=== PATIENT | female | born 1995 | race Caucasian/White ===

== ENCOUNTER 2022-09-19 08:09 | Outpatient (CLI) | payer OTHER ==
[2022-09-19 12:27] LABS: BASOPHILS # (AUTO) 0.1 10^3/uL (0.0-0.1); EOSINOPHILS # (AUTO) 0.1 10^3/uL (0.0-0.7); EOSINOPHILS % (AUTO) 1.7 %; HCT - HEMATOCRIT 43.7 % (37.0-47.0); HGB - HEMOGLOBIN 14.2 g/dL (12.0-16.0); INR 1.1 (0.8-1.2); LYMPHOCYTES # (AUTO) 2.2 10^3/uL (1.5-3.5); MEAN CORPUSCULAR HEMOGLOBIN 29.8 pg (27.0-31.0); MEAN CORPUSCULAR HGB CONC 32.5 g/dL (32.0-36.0); MEAN CORPUSCULAR VOLUME 91.8 fL (81.0-99.0); MEAN PLATELET VOLUME 10.7 fL (7.9-10.8); MONOCYTES # (AUTO) 0.4 10^3/uL (0.0-1.0); MONOCYTES % (AUTO) 7.5 %; NEUTROPHILS # (AUTO) 3.1 10^3/uL (1.5-6.6); NEUTROPHILS % (AUTO) 52.6 %; PLT - PLATELET COUNT 263 10^3/uL (130-450); PT - PROTHROMBIN TIME 12.2 secs (9.9-12.6); RED BLOOD COUNT 4.76 10^6/uL (4.20-5.40); WHITE BLOOD COUNT 5.9 x10^3/uL (4.8-10.8)
[2022-09-19 12:30] LABS: ALBUMIN 4.4 g/dL (3.2-5.5); ALBUMIN/GLOBULIN RATIO 1.4 (1.0-2.2); BILIRUBIN,TOTAL 0.8 mg/dL (0.2-1.0); CALCIUM 9.6 mg/dL (8.5-10.3); CREATININE 0.7 mg/dL (0.4-1.0); POTASSIUM 3.9 mmol/L (3.5-5.0); TOTAL PROTEIN 7.5 g/dL (6.7-8.2)
[2022-09-19 12:41] LABS: PARTIAL THROMBOPLASTIN TIME 30.5 secs (24.9-33.3)
[2022-09-19 12:48] LABS: THYROID STIMULATING HORMONE 1.66 uIU/mL (0.34-5.60)
[2022-09-19 12:50] LABS: FREE T4 (FREE THYROXINE) 0.76 ng/dL (0.58-1.64)
== END 2022-09-19 08:10 | disposition home or self-care (01) ==
LOC: LAB.N 08:09
PROVIDERS: ATTEND Physician Assistant
DX: R63.4 Abnormal weight loss (principal)
CPT/HCPCS: 36415; 80053; 84439; 84443; 85025; 85610; 85730

== ENCOUNTER 2022-10-29 16:14 | Outpatient (CLI) | payer OTHER ==
[2022-10-29 20:28] LABS: BASOPHILS % (AUTO) 0.4 %; EOSINOPHILS # (AUTO) 0.1 10^3/uL (0.0-0.7); EOSINOPHILS % (AUTO) 1.1 %; HCT - HEMATOCRIT 37.9 % (37.0-47.0); LYMPHOCYTES # (AUTO) 2.5 10^3/uL (1.5-3.5); LYMPHOCYTES % (AUTO) 27.3 %; MEAN CORPUSCULAR HEMOGLOBIN 31.1 pg (27.0-31.0); MEAN CORPUSCULAR HGB CONC 34.3 g/dL (32.0-36.0); MEAN CORPUSCULAR VOLUME 90.7 fL (81.0-99.0); MEAN PLATELET VOLUME 10.8 fL (7.9-10.8); MONOCYTES # (AUTO) 0.6 10^3/uL (0.0-1.0); MONOCYTES % (AUTO) 6.5 %; NEUTROPHILS % (AUTO) 64.6 %; PLT - PLATELET COUNT 244 10^3/uL (130-450); RED BLOOD COUNT 4.18 10^6/uL (4.20-5.40); RED CELL DISTRIBUTION WIDTH 12.5 % (12.0-15.0); WHITE BLOOD COUNT 9.3 x10^3/uL (4.8-10.8)
[2022-10-29 20:34] LABS: BILIRUBIN,URINE NEGATIVE (NEGATIVE); GLUCOSE, URINE (UA) NEGATIVE (NEGATIVE); KETONES,URINE (UA) NEGATIVE (NEGATIVE); LEUKOCYTE ESTERASE, URINE NEGATIVE (NEGATIVE); NITRITE,URINE NEGATIVE (NEGATIVE); OCCULT BLOOD,URINE NEGATIVE (NEGATIVE); PH,URINE 7.5 PH (5.0-7.5); PROTEIN,URINE NEGATIVE (NEGATIVE); UROBILINOGEN,URINE 0.2 (NORMAL) E.U./dL (NORMAL)
[2022-10-29 20:52] LABS: CLARITY,URINE HAZY (CLEAR); RBC,URINE None Seen /HPF (0-5); WBC,URINE 0-3 /HPF (0-5)
[2022-10-29 20:53] LABS: AMORPHOUS SEDIMENT,UR Few /LPF; BACTERIA,URINE Rare /HPF (None Seen); SQUAMOUS EPITHELIAL CELL,UR FEW Squamous (<= Few)
[2022-10-31 06:11] LABS: HBsAG SCREEN Negative (Negative)
[2022-10-31 07:10] LABS: RPR Non Reactive (Non Reactive)
[2022-10-31 08:10] LABS: VARICELLA-ZOSTER AB IGG <135 index (Immune >165)
[2022-11-01 05:12] LABS: HCV AB Non Reactive (Non Reactive); HIV SCREEN 4TH GENERATION Non Reactive (Non Reactive)
== END 2022-10-29 16:15 | disposition home or self-care (01) ==
LOC: LAB.N 16:14
PROVIDERS: ATTEND Nurse Practitioner
DX: Z36.89 Encounter for other specified antenatal screening (principal)
CPT/HCPCS: 36415; 81001; 85025; 86592; 86762; 86787; 86803; 86850; 86900; 86901; 87086; 87340; 87389

== ENCOUNTER 2022-11-13 20:39 | Outpatient (CLI) | payer OTHER ==
--- NOTE | 2022-11-14 09:14 | Ultrasound Report ---
PROCEDURE: OB First Trimester w/TV INDICATIONS: POSITIVE TEST OUTSIDE/PRIOR DATING DATA: Last menstrual period (LMP): Unknown. First dating scan (date and location): 11/13/2022. Estimated date of delivery (HERMILA) from first dating scan: 06/15/2023. TECHNIQUE: Real-time scanning was performed of the fetus and maternal pelvic organs, with image documentation. Endovaginal scanning was also performed to better visualize the fetus and maternal ovaries. COMPARISON: None FINDINGS: Single living intrauterine . Embryo: [place]-rump rump length of 2.8 cm corresponding to gestational age of 9 weeks 3 days. Heart rate: 176 bpm Small perigestational hemorrhage measuring 1.8 cm, less than 50% circumference of the gestational sac . Measurement variability in dating: +/- 4 weeks by LMP, +/- 7 days by mean sac diameter (use before 6 weeks gestation if crown-rump length not able to be measured), +/- 5 days by crown-rump length (6-12 weeks gestation). Maternal organs: Ovaries are unremarkable. Left corpus luteum. IMPRESSION: Single living intrauterine with gestational age of 9 weeks 3 days by crown-rump length yajaira esponding to an HERMILA of 06/15/2023. Reviewed by: Barrett Green MD on 11/14/2022 9:12 AM PDT Approved by: Barrett Green MD on 11/14/2022 9:12 AM PDT Station ID: [id number]
== END 2022-11-13 20:40 | disposition home or self-care (01) ==
LOC: DI 20:39
PROVIDERS: ATTEND Nurse Practitioner
DX: Z32.01 Encounter for pregnancy test, result positive (principal)

== ENCOUNTER 2022-11-17 09:00 | Outpatient (CLI) | payer OTHER ==
[2022-11-17 20:04] LABS: CHLAMYDIA TRACHOMATIS DNA NEGATIVE (NEGATIVE)
[2022-11-17 20:05] LABS: NEISSERIA GONORRHOEAE DNA NEGATIVE (NEGATIVE); TRICHOMONAS VAGINALIS DNA NEGATIVE (NEGATIVE)
== END 2022-11-17 23:59 | disposition home or self-care (01) ==
LOC: LAB.WC 09:00
PROVIDERS: ATTEND Obstetrics & Gynecology
DX: Z11.3 Encounter for screening for infections with a predominantly sexual mode of transmission (principal)
CPT/HCPCS: 87491; 87591; 87661

== ENCOUNTER 2023-01-09 14:26 | Outpatient (CLI) | payer OTHER ==
[2023-01-12 17:08] LABS: AFP MOM 0.98 (.); AFP VALUE 38.5 ng/mL (.); DIA MOM 0.45 (.); DIA VALUE 78.87 pg/mL (.); DSR (BY AGE) 1 IN 732 (.); DSR (SECOND TRIMESTER) 1 IN 10000 (.); GESTAT. AGE METHOD As provided (.); HCG MOM 0.45 (.); HCG VALUE 21993 mIU/mL (.); INSULIN DEP DIABETES No (.); MATERNAL AGE AT EDD 29.6 yr (.); MULTIPLE GESTATION No (.); OPEN SPINA BIFIDA RISK 1 IN 10000 (.); RACE Caucasian (.); RESULTS Report (.); TEST RESULTS *Screen Negative* (.); TRISOMY 18 RISK Not increased (.); UE3 MOM 0.79 (.); UE3 VALUE 0.79 ng/mL (.); WEIGHT 124 lbs (.)
== END 2023-01-09 14:27 | disposition home or self-care (01) ==
LOC: LAB.N 14:26
PROVIDERS: ATTEND Obstetrics & Gynecology
DX: Z34.90 Encounter for supervision of normal pregnancy, unspecified, unspecified trimester (principal)
CPT/HCPCS: 36415; 81511

== ENCOUNTER 2023-01-26 20:29 | Outpatient (CLI) | payer OTHER ==
--- NOTE | 2023-01-27 12:48 | Ultrasound Report ---
PROCEDURE: OB Detailed Eval INDICATIONS: SUPERVISION OF NORMAL OUTSIDE/PRIOR DATING DATA: Last menstrual period (LMP): Unknown. First dating scan (date and location): 11/13/2022. Estimated date of delivery (HERMILA) from first dating scan: 06/15/2023. TECHNIQUE: Real-time scanning was performed of the fetus, with image documentation and biometric measurements. Endovaginal scanning: Not performed. COMPARISON: 11/13/2022 FINDINGS: General: A single living intrauterine gestation is present. Presentation: Variable Placenta: Placental position is fundal without evidence of previa. Placental cord insertion 1.1 cm f rom the placental edge. Amniotic fluid index: 13.9 cm, within normal limits for gestational age. heart rate: 155 beats per minute. Maternal cervical canal: 3.5 cm long; normal length is 2.5 cm or more. biometrics: Biparietal diameter: 4.7 cm 20 weeks 2 days Head circumference: 17.9 cm 20 weeks 2 days Abdominal circumference: 16.2 cm 21 weeks 2 days Femur length: 3.2 cm 20 weeks 0 days Estimated gestational age from initial scan: 20 weeks 0 days Composite gestational age from present scan: 20 weeks 3 days Estimated weight and percentile: 366 g, 80th percentile Measurement variability in biometric dating: +/- 10 days from 12-20 weeks gestation, +/- 2 weeks from 20-30 weeks gestation, +/- 3 weeks at 30 weeks gestation or later. Anatomic survey: Neuro: Ventricles are normal at less than 10 mm. Cisterna magna is normal at 3-11 mm. Cerebellum i s normal in size and morphology. Nuchal skin fold: Normal at less than 6 mm between 14 and 20 weeks gestational age. Face: Nose and lips, facial profile are normal. Spine: No evidence for spina bifida. Heart: 4-chambered heart is present, with normal ventricular outflow tracts. Diaphragm: Diaphragm is intact. Stomach: Left-sided stomach is present. Kidneys: No hydronephrosis. Normal is less than 5 mm in 2nd trimester, less than 7 mm in 3rd trimester. Cord: 3 vessel cord has orthotopic insertion. Bladder: Normal in size. Extremities: All 4 extremities are visualized. IMPRESSION: 1. Single living intrauterine . 2. Marginal placental cord origin. Recommend follow-up ultrasound for growth assessment and to evalua te for progression to velamentous cord origin at 28-32 weeks gestational age. 3. Normal second trimester anatomy survey. No anatomic anomalies detected at this time. Reviewed by: Barrett Green MD on 01/27/2023 12:47 PM PDT Approved by: Barrett Green MD on 01/27/2023 12:47 PM PDT Station ID: [id number]
== END 2023-01-26 20:30 | disposition home or self-care (01) ==
LOC: DI 20:29
PROVIDERS: ATTEND Obstetrics & Gynecology
DX: Z34.02 Encounter for supervision of normal first pregnancy, second trimester (principal); Z36.89 Encounter for other specified antenatal screening

== ENCOUNTER 2023-03-20 08:50 | Outpatient (CLI) | payer OTHER ==
[2023-03-20 12:32] LABS: HCT - HEMATOCRIT 37.6 % (37.0-47.0); HGB - HEMOGLOBIN 12.4 g/dL (12.0-16.0); MEAN CORPUSCULAR HEMOGLOBIN 31.6 pg (27.0-31.0); MEAN CORPUSCULAR VOLUME 95.7 fL (81.0-99.0); RED BLOOD COUNT 3.93 10^6/uL (4.20-5.40); RED CELL DISTRIBUTION WIDTH 12.6 % (12.0-15.0); WHITE BLOOD COUNT 8.8 x10^3/uL (4.8-10.8)
== END 2023-03-20 08:51 | disposition home or self-care (01) ==
LOC: LAB.N 08:50
PROVIDERS: ATTEND Obstetrics & Gynecology
DX: Z34.90 Encounter for supervision of normal pregnancy, unspecified, unspecified trimester (principal)
CPT/HCPCS: 36415; 82950; 85027

== ENCOUNTER 2023-04-14 21:40 | Outpatient (CLI) | payer OTHER ==
--- NOTE | 2023-04-15 16:00 | Ultrasound Report ---
PROCEDURE: OB F/U or Repeat INDICATIONS: ABN US OUTSIDE/PRIOR DATING DATA: Last menstrual period (LMP): Unknown. LMP-based estimated date of delivery (HERMILA): Unknown. First dating scan (date and location): 11/13/2022. Estimated date of delivery (HERMILA) from first dating scan: 06/15/2023. The below data below was generated using the ultrasound HERMILA of 06/15/2023 TECHNIQUE: Real-time scanning was performed of the fetus, with image documentation and biometric measurements. COMPARISON: OB ultrasound 01/24/2023 FINDINGS: General: A single living intrauterine gestation is present. Presentation: For age Placenta: Placental position is fundal.. Placental cord insertion is 5.7 cm, from the placental edg e Amniotic fluid index: 14.9 cm, within normal limits for gestational age. heart rate: 143 beats per minute. Maternal cervical canal: 3.7 cm long; normal length is 2.5 cm or more. biometrics: Biparietal diameter: 7.6 cm 30 weeks 4 days Head circumference: 30 cm 33 weeks 2 days Abdominal circumference: 27.4 cm 21 weeks 4 days Femur length: 5.9 cm 31 weeks 1 day Estimated gestational age from initial scan: 31 weeks 1 day Composite gestational age from present scan: 31 weeks 5 days Estimated weight and percentile: 1777 g, 50th percentile Measurement variability in biometric dating: +/- 10 days from 12-20 weeks gestation, +/- 2 weeks from 20-30 weeks gestation, +/- 3 weeks at 30 weeks gestation or more. Other: Systolic to diastolic ratios of the umbilical cord measured 2.7, 2.6, 2.5. IMPRESSION: Single live intrauterine . Gestational age today 31 weeks 5 days. Placental cord insertion is 5.7 cm from the placental edge. Reviewed by: Katie Crane MD on 04/15/2023 3:59 PM PDT Approved by: Katie Crane MD on 04/15/2023 3:59 PM PDT Station ID: [id number]
== END 2023-04-14 21:41 | disposition home or self-care (01) ==
LOC: DI 21:40
PROVIDERS: ATTEND Nurse Practitioner
DX: O36.5193 Maternal care for known or suspected placental insufficiency, unspecified trimester, fetus 3 (principal); Z3A.31 31 weeks gestation of pregnancy

== ENCOUNTER 2023-05-13 08:00 | Outpatient (CLI) | payer OTHER | END 2023-05-13 23:59 | disposition home or self-care (01) | LOC: LAB.WC 08:00 | PROVIDERS: ATTEND Obstetrics & Gynecology | DX: Z36.89 Encounter for other specified antenatal screening (principal) | CPT/HCPCS: 87797 ==

== ENCOUNTER 2023-06-11 05:28 | Inpatient (IN) | payer OTHER ==
[2023-06-11] MEDS ORDERED: CITRIC ACID/SODIUM CITRATE 15 ML UDC PO ONE (06:18)
[2023-06-11] MEDS ORDERED: ceFAZolin (2G) 2 GM in SODIUM CHLORIDE 0.9% MINIBAG 100 ML IV ONE (06:18)
[2023-06-11] MEDS ORDERED: SIMETHICONE 40 MG/0.6 ML 15 ML BOTTLE PO PRN (06:21)
[2023-06-11 06:31] LABS: BASOPHILS # (AUTO) 0.1 10^3/uL (0.0-0.1); BASOPHILS % (AUTO) 0.5 %; EOSINOPHILS # (AUTO) 0.1 10^3/uL (0.0-0.7); HCT - HEMATOCRIT 37.2 % (37.0-47.0); HGB - HEMOGLOBIN 12.6 g/dL (12.0-16.0); LYMPHOCYTES # (AUTO) 2.5 10^3/uL (1.5-3.5); LYMPHOCYTES % (AUTO) 24.5 %; MEAN CORPUSCULAR HEMOGLOBIN 30.9 pg (27.0-31.0); MEAN CORPUSCULAR HGB CONC 33.9 g/dL (32.0-36.0); MEAN CORPUSCULAR VOLUME 91.2 fL (81.0-99.0); MEAN PLATELET VOLUME 10.1 fL (7.9-10.8); MONOCYTES # (AUTO) 0.8 10^3/uL (0.0-1.0); MONOCYTES % (AUTO) 7.6 %; NEUTROPHILS # (AUTO) 6.7 10^3/uL (1.5-6.6); NEUTROPHILS % (AUTO) 65.7 %; PLT - PLATELET COUNT 215 10^3/uL (130-450); RED BLOOD COUNT 4.08 10^6/uL (4.20-5.40); RED CELL DISTRIBUTION WIDTH 12.4 % (12.0-15.0); WHITE BLOOD COUNT 10.2 x10^3/uL (4.8-10.8)
[2023-06-11] MEDS: LACTATED RINGERS 1,000 ML IV SCH ×2 (06:45→10:28)
[2023-06-11] MEDS ORDERED: KETOROLAC 30 MG/ML VIAL ONE ×2 (07:07→11:07)
[2023-06-11] MEDS ORDERED: fentaNYL 100 MCG/2 ML VIAL ONE (07:07)
[2023-06-11] MEDS ORDERED: ONDANSETRON 4 MG/2 ML VIAL ONE (07:07)
--- NOTE | 2023-06-11 07:35 | HISTORY & PHYSICAL EXAMINATION ---
Admit History - Visit Reason Visit Reason: Other (scheduled RCS x3) - : 3 Parity: 2 Care: positive: [facility] Risk/History: positive: Previous Complications This : positive: None, Other (had tachycardia x1 at clinic that resulted in NST at hospital, resolved) Smoking Status: Never smoker - Mother's Labs Mother's Blood Type: positive: A Mother's RH: positive: Positive GBS: positive: Group B Step Negative Rubella Status: positive: Immune - Other Maternal History Other Maternal History: ANL: A+/abneg/RI/RPRNR/HepBneg/HIVneg/GCCTnegneg/GBSneg ANC c/b: 1. prior C/S x2, scheduled repeat today 2. tobacco use in - and she has since stopped. 3. 1x short episode of tachycardia, non reproducable on NST. routine ANC: --cfDNA wnl declined flu / covid vaccine, did get TDAP vaccine PMH: denies PSH: C/S x2 POB: PGYN: no h/o abnormal pap no h/o STDs no h/o problems with ovaries or uterus pt with regular monthly periods, when not Meds: PNV, All: NKDA Soc: neg x3, lives with FOB who is present and involved - [facility] Current EDU 06/15/23 Gestation 39 Weeks and 3 Days 2 Para 1 Vital Signs Temperature 98.2 F 06/11/23 05:44 Heart Rate 88 06/11/23 05:44 Respiratory Rate 16 06/11/23 05:44 Blood Pressure 114/77 06/11/23 05:44 Temperature 98.2 F 06/11/23 05:44 Heart Rate 88 06/11/23 05:44 Respiratory Rate 16 06/11/23 05:44 Blood Pressure 114/77 06/11/23 05:44 O2 Saturation If not protocol: Oxygen Flow, liters/minute - NST Procedure NST Procedure Start Date 06/11/23 Start Time 05:42 Stop Time 06:29 Vibroacoustic Stimulation Used No Patient States Movement Yes Meds/Allgy - Home Medications Home Medications: Ambulatory Orders Medication Instructions Recorded Confirmed No Known Home Medications 06/10/23 06/10/23 - Allergies Allergies/Adverse Reactions: Allergies Allergy/AdvReac Type Severity Reaction Status Date / Time No Known Drug Allergies Allergy Verified 06/10/23 13:20 Review of Systems - Other Findings Other Findings: Denies: F/C/N/V/CP/SOB Denies: dizziness, weakness, lightheadedness, difficulty with ambulation, palp itations Denies: LINO / visual changes Physical - Abdominal Exam Vital Signs: Temp Pulse Resp BP Pulse Ox O2 Flow Rate 98.2 F 88 16 114/77 06/11/23 05:44 06/11/23 05:44 06/11/23 05:44 06/11/23 05:44 - Other Notes Labor Progress Note/Additional Text: VSS NAD Conjunctiva pink, pale sclera +S1, S2, CTAB, no increased work of breathing Abd soft, NT, ND, visibly gravid at term Rah: cephalic 7# EFM: 140mod miguelito + A cells no D cells, reactive [place]: acontractile Cx: deferred Ext: neg CCE Plan for Labor - Plan For Labor I expect patient to be DC'd or transferred within 96 hours.: Yes Plan for Labor: 27yo here for scheduled RCS x3 RBA reviewed all questions answered proceed to OR when available
[2023-06-11] MEDS ORDERED: HYDROmorphone 0.5 MG/0.5 ML SYRINGE IVP PRN (07:36)
[2023-06-11] MEDS ORDERED: METOCLOPRAMIDE 10 MG/2 ML VIAL IVP PRN (07:36)
[2023-06-11] MEDS ORDERED: NALOXONE 0.4 MG/ML VIAL IVP PRN ×2 (07:36→09:32)
[2023-06-11] MEDS ORDERED: MORPHINE 2 MG/ML CARPUJECT IVP PRN (07:36)
[2023-06-11] MEDS ORDERED: ATROPINE ABBOJECT 1 MG/10 ML SYRINGE IVP PRN (07:36)
[2023-06-11] MEDS ORDERED: ONDANSETRON 4 MG/2 ML VIAL IVP PRN (07:36)
[2023-06-11] MEDS ORDERED: fentaNYL 100 MCG/2 ML VIAL IVP PRN (07:36)
[2023-06-11] MEDS ORDERED: ePHEDrine 50 MG/ML VIAL IVP PRN (07:36)
--- NOTE | 2023-06-11 07:36 | ANESTHESIA ---
Pre-Anesthesia VS, & Labs - Diagnosis previous C/S - Procedure repeat C/S Vital Signs: Temp Pulse Resp BP Pulse Ox O2 Flow Rate 36.8 C 88 16 114/77 06/11/23 05:44 06/11/23 05:44 06/11/23 05:44 06/11/23 05:44 Height: 5 ft 8 in Weight (kg): 73.936 kg Body Mass Index: 24.7 BMI Classification: Normal - NPO >8 hours - Is Patient ?: Yes - Lab Results Current Lab Results: Laboratory Tests 06/11/23 06:00: WBC 10.2, RBC 4.08 L, Hgb 12.6, Hct 37.2, MCV 91.2, MCH 30.9, MCHC 33.9, RDW 12.4, Plt Count 215, MPV 10.1, Neut # (Auto) 6.7 H, Lymph # (Auto) 2.5, Stewart # (Auto) 0.8, Eos # (Auto) 0.1, Baso # (Auto) 0.1, Absolute Nu cleated RBC 0.00, Nucleated RBC % 0.0 Fish Bones: 06/11/23 06:00 Home Medications and Allergies Home Medications: Ambulatory Orders No Known Home Medications 06/10/23 Active Medications Lactated Ringer's (Lr) 1,000 mls @ 125 mls/hr IV .Q8H AJAY Last Admin: 06/11/23 06:45 Dose: 125 mls/hr Simethicone (Simethicone 40 Mg/0.6 Ml 15 Ml Bottle) 80 mg PO Q6HR PRN PRN Reason: Gas No Known Home Medications 06/10/23 Allergies/Adverse Reactions: Allergies Allergy/AdvReac Type Severity Reaction Status Date / Time No Known Drug Allergies Allergy Verified 06/10/23 13:20 Anes History & Medical History - Anesthetic History Anesthesia Complications: reports: No previous complications Family history of Anesthesia Complications: Denies Family history of Malignant Hyperthermia: Denies - Medical History Cardiovascular: reports: None Pulmonary: reports: None Gastrointestinal: reports: None Urinary: reports: None Musculoskeletal: reports: None Endocrine/Autoimmune: reports: None Smoking Status: Never smoker - Surgical History Gynecologic: reports: section - Obstetrical History : 3 Parity: 2 Events: reports: Previous Complications: reports: None, Other (had tachycardia x1 at clinic that resulted in NST at hospital, resolved) Exam General: Alert, Oriented x3, Cooperative Dental: WNL Mouth Openin Fingerbreadth Neck Mobility: Normal Mallampati classification: I Thyromental Distance: 4-6 cm Respiratory: Lungs clear Cardiovascular: Regular rate Plan Anesthesia Type: Spinal, Transverse Abdominis Plane (TAP) Block Consent for Procedure(s) Verified and Reviewed: Yes Code Status: Attempt Resuscitation ASA classification: 2-Mild systemic disease Is this case an emergency?: No
[2023-06-11] MEDS ORDERED: SODIUM CHLORIDE 0.9% 10 ML VIAL IVP ONE ×2 (07:41→07:46)
[2023-06-11] MEDS ORDERED: ROPIVACAINE 0.5% PF 20 ML VIAL ONE (07:41)
[2023-06-11] MEDS ORDERED: OXYTOCIN/SODIUM CHLORIDE 500 ML IV ONE (07:49)
[2023-06-11] MEDS ORDERED: LACTATED RINGERS 1,000 ML IV SCH (08:00)
[2023-06-11] MEDS ORDERED: LACTATED RINGERS 1,000 ML IV ONE (09:18)
--- NOTE | 2023-06-11 09:20 | OPERATIVE REPORT ---
Operative Report - General Admit Date: 06/11/23 Procedure Date: 06/11/23 Planned Procedure: repeat LTC/S via pfannensteil incision Pre-Op Diagnosis: IUP at 39 weeks, h/o prior C/S Procedure Performed: repeat low transverse C/S via pfannensteil incision Post Op Diagnosis: same as above - Procedure Note Primary Surgeon: javi Secondary Surgeon: juan ramon Anesthesia Provider: KETTLE FRY COOK OPERATOR Anesthesia Technique: Spinal Pathology: cord blood IV Fluids (mL): 900 (crystalloid) Estimated Blood Loss (mL): 500 Urine Output (mL): 200 (clear yellow) Indications: history of prior C/S, IUP @ 39w Findings: viable male in vertex presentation normal uterus normal tubes and ovaries x2 no significant adhesions Complications: none apparent - Other Other Information/Narrative: OPERATIVE NOTE Pre-operative diagnosis: 1. IUP @ 39+ 2. history of prior C/S Procedure: RLTCS via pfannensteil skin incision Post-operative diagnosis: JUDY Surgeon: Javi Customer Engineering Specialist: Juan Ramon Anesthesia: Spinal Findings: viable male , Apgars 8/9, born at 0817 normal uterus normal tubes & ovaries bilaterally no notable adhesions Complications: None apparent EBL: 500cc UOP: 200cc Procedure in detail: After risks benefits and alternatives, as well as indication for procedure and anticipated post-operative recovery course, were discussed with the patient informed consent was obtained and patient was taken to the operating theater where spinal anesthesia was administered without difficulty. Marcial catheter was inserted in normal sterile fashion. Pt was prepared and draped in normal sterile fashion. Anesthesia was tested and found to be adequate. Prior to skin incision pt received recommended antibiotics, surgical time out was performed, and all persons in the operating theater participated in time out and agreed. Pfannensteil skin incision made with scalpel. Carried down to level of fasia. Fascia incised and extended. Anterior aspect of rectus sheath dissected off of rectus muscle without difficulty. Peritoneum entered without difficulty and surgical field extended with gentle lateral traction. Lower uterine segment identified, well developed. Uterine incision made with scalpel, uterus entered bluntly and incision extended bluntly. Surgeons right hand entered into lower uterine segment, presenting part elevated to level of incision and infant delivered atraumatically. Cord clamped and cut x2, baby handed to awaiting co teacher, apgars as noted above. Placenta delivered manually. Uterus exteriorized and wrapped in moist lap. Uterine cavity cleaned with moist lap and found to be free of membranes or debris. Uterine incision closed with 0 vicryl, running suture, and subsequently imbricated with the same suture. Additional figure of 8 sutures placed x 3 for hemostasis. Incision inspected, hemostatic. Gutters cleaned. Uterus returned to abdominal cavity. All inspected, hemostatic. Peritoneum reapproximated without suture. Muscles inspected, fascia inspected, hemostatic. Fascia closed with 0 PDS in running fashion. Subcutaneous tissue irrigated, and then closed with 2.0 vicryl in running fashion. Skin incision closed with subcuticular sutures with 4.0 vicryl. Pt and tolerated procedure well. All counts correct. Pt to PACU in stable condition.
[2023-06-11] MEDS ORDERED: LABETALOL 20 MG/4 ML SYRINGE IVP PRN ×3 (09:32)
[2023-06-11] MEDS ORDERED: OXYTOCIN/SODIUM CHLORIDE 500 ML IV PRN (09:32)
[2023-06-11] MEDS ORDERED: NIFEdipine 10 MG CAPSULE PO PRN (09:32)
[2023-06-11] MEDS ORDERED: hydrALAZINE INJ 20 MG/ML VIAL IVP PRN ×2 (09:32)
--- NOTE | 2023-06-11 09:46 | ANESTHESIA POST OP EVALUATION ---
Anesthesia Post Eval - Post Anesthesia Eval Vitals: Last Vital Signs Temp 36.8 C 06/11/23 09:18 Pulse 70 06/11/23 09:40 Resp 17 06/11/23 09:40 BP 114/82 H 06/11/23 09:40 Pulse Ox 99 06/11/23 09:40 O2 Flow Rate CV Function Including HR & BP: Stable Pain Control: Satisfactory Nausea & Vomiting: Negative Mental Status: Baseline Respiratory Status: Airway Patent Hydration Status: Satisfactory Anesthesia Complications: None
[2023-06-11] MEDS: oxyCODONE 5 MG TABLET PO PRN ×2 (13:06→18:02)
[2023-06-11] MEDS: KETOROLAC 30 MG/ML VIAL IVP SCH ×2 (14:56→21:15)
[2023-06-11] MEDS: SIMETHICONE CHEW 80 MG TABLET PO PRN ×2 (15:15→21:14)
[2023-06-11] MEDS: ACETAMINOPHEN 500 MG TABLET PO SCH (16:09)
[2023-06-11] MEDS: DOCUSATE SODIUM 100 MG CAPSULE PO SCH ×2 (21:15→21:23)
[2023-06-12] MEDS: ACETAMINOPHEN 500 MG TABLET PO SCH ×2 (02:55→11:41)
[2023-06-12] MEDS: KETOROLAC 30 MG/ML VIAL IVP SCH (03:00)
[2023-06-12] MEDS: SIMETHICONE CHEW 80 MG TABLET PO PRN ×2 (03:05→08:23)
[2023-06-12 05:19] LABS: HCT - HEMATOCRIT 32.8 % (37.0-47.0); MEAN CORPUSCULAR HGB CONC 33.5 g/dL (32.0-36.0); MEAN CORPUSCULAR VOLUME 92.4 fL (81.0-99.0); MEAN PLATELET VOLUME 9.9 fL (7.9-10.8); RED BLOOD COUNT 3.55 10^6/uL (4.20-5.40); RED CELL DISTRIBUTION WIDTH 12.5 % (12.0-15.0)
[2023-06-12 08:06] VITALS: O2SAT 99
[2023-06-12] MEDS: DOCUSATE SODIUM 100 MG CAPSULE PO SCH (08:22)
[2023-06-12] MEDS: oxyCODONE 5 MG TABLET PO PRN (08:24)
[2023-06-12] MEDS ORDERED: IBUPROFEN 600 MG TABLET PO SCH ×2 (08:30→16:00)
--- NOTE | 2023-06-12 10:29 | Discharge Plan ---
Discharge Plan Problem Reviewed?: Yes Disposition: Home, Self Care Condition: Good Diet: Regular Activity Restrictions: No Restrictions Instruction Topics: C Section Dc, Depression No Smoking: If you smoke, Please STOP! Call for help. Follow-up with: Pushpa Reina ARNP [Primary Care Provider] -
--- NOTE | 2023-06-12 11:53 | DISCHARGE SUMMARY ---
"Discharge Summary Admit Date: 06/11/23 Discharge Date: 06/12/23 Discharging Provider: Yandel cervantes MD Code Status: Attempt Resuscitation Condition at Discharge: Good Discharge Disposition: 01 Home, Self Care - DIAGNOSES Admission Diagnoses: 39 weeks gestation Previous low-transverse section Discharge Diagnoses with Status of Each Condition: 39 weeks gestation Previous low-transverse section Status post repeat low-transverse section Delivery of live mayo - HPI History of Present Illness: Subjective Patient reports she is doing well. Lochia appropriate. Denies heavy bleeding. Ambulating. Pelvic and abdominal pain well-controlled. Tolerating oral intake. Diet: Regular. Voiding without difficulty. Passing flatus. Denies BM. Patient is bonding with baby in room Breast feeding going well. Supplementing with bottle feeding Denies feeling lightheaded, dizzy or excessively fatigued. Control: Progestin only pills Objective General: Alert, oriented, no apparent distress. Cardiovascular: Regular rate. Regular rhythm. Lungs: No increased work of breathing. Abdomen: Uterus firm. Below umbilicus. No guarding or rebound. Extremities: No pain on palpation. No cords palpated. Distal pulses intact. Incision: Clean, dry, and intact. - CONSULTS | PROCEDURES Procedures: Repeat low-transverse section - HOSPITAL COURSE Hospital Course: Patient presented at 39 weeks gestation for a scheduled low-transverse section. Procedure was uncomplicated and she had a normal course. She was discharged on postoperative day 1 in good condition with her . weight: 3479 g - ALLERGIES Allergies/Adverse Reactions: Allergies Allergy/AdvReac Type Severity Reaction Status Date / Time No Known Drug Allergies Allergy Verified 06/10/23 13:20 - MEDICATIONS Home Medications: Ambulatory Orders Medication Instructions Recorded Confirmed Docusate Sodium 100Mg Capsule 100 - 200 mg PO BID PRN #60 cap 06/12/23 [Colace 100Mg Capsule] Ibuprofen [Motrin] 600 mg PO Q6H PRN #30 tab 06/12/23 Oxycodone HCl/Acetaminophen 1 each PO Q6HR PRN #20 tablet 06/12/23 [Percocet 5-325 mg Tablet] - LABS Result Diagrams: 06/12/23 05:14 - FOLLOW UP Follow Up: With Yandel Delatorre MD in 1 to 2 weeks at [facility] - TIME SPENT Time Spent in Discharge (Minutes): 20"
[2023-06-12 12:26] VITALS: BP 105/63
[2023-06-12] MEDS ORDERED: oxyCODONE 5 MG TABLET PO PRN (15:06)
[2023-06-12] MEDS ORDERED: SIMETHICONE CHEW 80 MG TABLET PO PRN (15:07)
== END 2023-06-12 16:25 | disposition home or self-care (01) | DRG 788 ==
LOC: FBP 05:28 → UNDODISIN 06-12 14:21
PROVIDERS: ADMIT Obstetrics & Gynecology; ATTEND Obstetrics & Gynecology
PROC: 10D00Z1 Extraction of Products of Conception, Low, Open Approach (ICD-10-PCS; principal; 2023-06-11 07:30)
DX: O34.211 Maternal care for low transverse scar from previous cesarean delivery (principal); N85.8 Other specified noninflammatory disorders of uterus; Z3A.39 39 weeks gestation of pregnancy; Z37.0 Single live birth; O99.333 Smoking (tobacco) complicating pregnancy, third trimester
CPT/HCPCS: 36415; 85025; 85027; 86850; 86900; 86901; A9270; J2795; J7120